=== PATIENT | female | born 1985 | race Two or more races ===

== ENCOUNTER 2020-04-25 15:07 | Emergency (ER) | payer OTHER, MEDICAID ==
[~2020-04-25] VITALS: Ht 162.6 cm; Wt 108.9 kg
[2020-04-25] MEDS ORDERED: HYDROmorphone HCL 2 MG/ML VL IV ONE ×3 (15:45→20:30)
[2020-04-25] MEDS ORDERED: ONDANSETRON HCL 4 MG/2 ML VIAL IV ONE (15:45)
[2020-04-25] MEDS ORDERED: MORPHINE SULFATE 4 MG/ML SYR/VIAL IV ONE (16:45)
[2020-04-25] MEDS ORDERED: ETOMIDATE (2MG/ML) 20ML VIAL IV ONE ×2 (17:15→17:35)
[2020-04-25] MEDS ORDERED: HYDROcodone-ACET 10/325MG TAB PO ONE (19:45)
[2020-04-25 21:36] VITALS: BP 142/61
== END 2020-04-25 21:57 | disposition short-term general hospital (02) ==
LOC: EDBD 15:07 → ER 15:07
DX: S82.851A Displaced trimalleolar fracture of right lower leg, initial encounter for closed fracture (principal); V43.52XA Car driver injured in collision with other type car in traffic accident, initial encounter; Y93.89 Activity, other specified; Y92.89 Other specified places as the place of occurrence of the external cause; Y99.8 Other external cause status
CPT/HCPCS: 27818; 73130; 73600; 73610; 96374; 96375; 96376; 99152; 99285; J1170; J2270; J2405; J7030; 27816